=== PATIENT | male | born 1975 | race Caucasian/White ===

== ENCOUNTER 2016-04-11 10:26 | Day surgery (SDC) | payer BC ==
[~2016-04-11 10:26] MED LIST: BRIDION 200MG/2ML IV ONE; DILAUDID 2 MG INJECTION IV ONE; DIPRIVAN 200 MG/20 ML IV ONE; Decadron 4 MG INJ IV ONE; Quelicin Fliptop 200 MG/10 ML IJ ONE; SUBLIMAZE 100 MCG/2 ML IV ONE; TORAdol 30 mg Injection IJ ONE; Zemuron 100 MG/10 ML IV ONE; Zofran 4 MG/2 ML VIAL IV ONE
--- NOTE | 2016-04-11 10:33 | HP ---
DATE OF SURGERY: 04/11/2016 HISTORY OF PRESENT ILLNESS: The patient is a 41 year-old for the past month or so had some upper abdominal aches and soreness radiating to both sides associated with some nausea and vomiting initially mostly nausea now. HIDA scan showed contracture and was okay. However he had sludge in the gallbladder, 3 mm thickness along the gallbladder wall whether stone, sludge or polyp is unclear. He also had some fatty infiltration of the liver. PAST MEDICAL HISTORY: Essential tremors, asthma. PAST SURGICAL HISTORY: Kidney stones in the past. [place] teeth removed. Methicillin resistant staphylococcus aureus infection in his groin in the past. MEDICATIONS: Xanax, Protonix, Flonase, Singulair inhaler. He had also been on some tramadol in the past as well. ALLERGIES: NKDA. FAMILY HISTORY: Ovarian cancer, colon cancer, pelvic cancer, diabetes, hypertension, seasonal allergies, hay fever. SOCIAL HISTORY: Pack per day smoker. Denies alcohol abuse. REVIEW OF SYSTEMS: Ten systems reviewed per admission assessment pertinent for as noted above. No chest pain or palpitations currently other systems negative or noncontributory as above per preadmission questionnaire. PHYSICAL EXAMINATION: GENERAL: No acute distress. HEENT: Sclerae nonicteric. NECK: No JVD. CHEST: Equal excursion, nonlabored breathing. CVS: Regular rate and rhythm. ABDOMEN: Soft. No peritoneal signs. Tenderness in the upper abdomen. EXTREMITIES: No significant edema. NEURO: Alert, moving extremities symmetrically. No gross motor deficits noted. IMPRESSION: Symptomatic biliary colic and sludge as well as questionable polyp or stone probable chronic cholecystitis. Given the above symptoms, physical exam and history I feel he warrants cholecystectomy. He was shown the risk sheet and gallbladder pamphlet and explained the procedure in detail but not limited to bleeding or infection, risk of trocar injury or hernia, small risk of bowel, bladder, or blood vessel injury, small risk of bile leak, bile duct injury, retained stone or sludge possibly requiring further procedures either open or ERCP, general risk of anesthesia, deep venous thrombosis, pulmonary embolism, pneumonia, perioperative risk of aches, pains, bloating, constipation and/or loose stools possibly chronic in nature. He also understands possibility of the need to convert to open procedure as well as the possibility that this procedure may not improve his symptoms that he may need further work up and/or testing, endoscopy, other studies or procedures. He understands and agrees to the planned procedure, will proceed with laparoscopic cholecystectomy with possible open as an outpatient.
[2016-04-11] MEDS ORDERED: Pepcid 20 MG VIAL IV ONE (10:39)
[2016-04-11] MEDS ORDERED: MEFOXIN 2 GM PREMIX** 50 ML IV ONE (10:40)
[2016-04-11] MEDS ORDERED: Xopenex 1.25 MG/0.5 ML UD NEBULE IH ONE ×2 (10:58→11:02)
[2016-04-11] MEDS ORDERED: Sodium Chloride 3 ML UD NEBULES IH ONE (10:58)
[2016-04-11] MEDS ORDERED: Lactated Ringers 1,000 ML IV SCH (11:00)
[2016-04-11] MEDS ORDERED: Sodium Chloride 3 ML UD NEBULES IH PRN (11:04)
[2016-04-11] MEDS ORDERED: Sensorcaine 0.25% 10 ML ONE (11:09)
[2016-04-11] MEDS ORDERED: Lactated Ringers 1,000 ML IV ONE (11:09)
[2016-04-11] MEDS ORDERED: SUBLIMAZE 100 MCG/2 ML ONE (13:02)
[2016-04-11] MEDS ORDERED: NORCO 5/325 MG PO PRN (13:50)
[2016-04-11 14:43] VITALS: BP 127/75; PULSE 65; O2SAT 93
--- NOTE | 2016-04-11 15:35 | OP ---
SURGERY DATE/TIME: 04/11/2016 1144 PREOPERATIVE DIAGNOSIS: Symptomatic biliary colic, chronic cholecystitis, symptomatic biliary sludge, wall thickening with question of polyp or adherent stone on ultrasound. POSTOPERATIVE DIAGNOSIS: Chronic cholecystitis. PROCEDURE: Laparoscopic cholecystectomy. SURGEON: Dr. Gaurang Comer. ANESTHESIA: General. ESTIMATED BLOOD LOSS: Minimal. INDICATIONS: As noted above. Risks and benefits explained in detail but not limited to and consent obtained. DESCRIPTION OF PROCEDURE AND FINDINGS: The patient was taken to the OR. General anesthesia was induced. Abdomen was prepped and draped in the usual sterile fashion. After official time out and no disagreement with planned procedure, a transverse incision made at supraumbilical area. Fascia grasped and pulled upward. Veress needle inserted and tested with saline. Pneumoperitoneum accomplished insufflating opening pressure of 0-15. An 11 mm bladeless port and 5 mm lens were inserted without difficulty followed by two - 5 mm right upper quadrant ports and an 5 mm epigastric port. The gallbladder is grasped and retracted over the edge of the liver. Extensive chronic inflammatory reaction but slowly and carefully dissecting posterior, lateral to anterior fashion. The main cystic artery isolated directly on the gallbladder wall clipped x3 and divided this opened up the angle. The cystic duct and infundibular junction slowly and carefully well skeletonized until a critical view was obtained both anteriorly and posteriorly. Once this was accomplished cystic duct was then clipped x3 and divided in usual fashion. Gallbladder slowly and carefully dissected free. It was quite vascular requiring clipping additional oozing side branch off the cystic artery as necessary directly on the gallbladder wall. It took some time but slowly and carefully accomplished staying directly on the gallbladder wall. It was carefully freed from its dense attachments to the liver bed. It took some time but slowly and carefully accomplished. Just prior to releasing from final attachments to the anterior edge of the liver the grasper tore a small hole in the gallbladder spilling a small amount of bile. There was no gross evidence of any stone spillage. The gallbladder was suctioned free and then continued dissecting the gallbladder free from its dense attachments to the liver bed. Just prior to releasing from final attachments to the anterior edge of the liver, the liver bed re-inspected. Clips noted to be in place in cystic duct and cystic artery stumps. There were no signs of any active bleeding or bile leakage from the liver bed itself. The gallbladder was released from final attachments to the anterior edge of the liver, pulled up and out the umbilical 10/11 port and passed off. Fascia was closed with puncture closure device with #1 Vicryl. The liver was bed re-inspected one last time. Clips noted to be in place in cystic duct and cystic artery stumps. There were no signs of any active bleeding or bile leakage. It was felt there was no benefit from drain placement. Copious amount of irrigation irrigating lateral to the liver irrigating until clear. At this point pneumoperitoneum decompressed. The wound was irrigated out. Skin incision closed with 4-0 Vicryl. Steri-Strips and sterile dressing applied. The patient tolerated the procedure well. There were no immediate complications. Findings were discussed with the family out in the waiting area.
== END 2016-04-11 14:50 | disposition home or self-care (01) ==
LOC: SDC 10:26
PROVIDERS: ATTEND Surgery
PROC: 0FT44ZZ Resection of Gallbladder, Percutaneous Endoscopic Approach (ICD-10-PCS; principal; 2016-04-11)
DX: K81.1 Chronic cholecystitis (principal); K82.8 Other specified diseases of gallbladder; J45.909 Unspecified asthma, uncomplicated; G25.0 Essential tremor; K76.0 Fatty (change of) liver, not elsewhere classified; Z72.0 Tobacco use
CPT/HCPCS: 00790; 36415; 88304; 94640; J0330; J0694; J1100; J1170; J1885; J2405; J2704; J3010